=== PATIENT | male | born 1950 | race Caucasian/White ===

== ENCOUNTER 2019-10-12 06:28 | Day surgery (SDC) | payer MEDICARE, BC ==
[~2019-10-12 06:28] MED LIST: Lactated Ringers 1,000 ML IV SCH; Sodium Chloride 0.9% 10 ML SDV IV PRN; Sodium Chloride 0.9% 10 ML Syringe FLUSH PRN; Sodium Chloride 0.9% 2.5 ML Syringe FLUSH PRN; ceFAZolin 1 GM in Premix Bag 1 BAG IV ONE
[2019-10-12] MEDS ORDERED: Lidocaine 1% 20 ML MDV ONE (07:14)
[2019-10-12] MEDS ORDERED: Bupivacaine 0.5% 30 ML SDV ONE (07:14)
[2019-10-12] MEDS ORDERED: Omeprazole 20 MG Cap.CR PO PRN (09:24)
[2019-10-12] MEDS ORDERED: Gabapentin 100 MG Cap PO PRN (09:24)
[2019-10-12] MEDS ORDERED: Celecoxib 100 MG Cap PO PRN (09:24)
--- NOTE | 2019-10-12 11:16 | OR ---
SURGEON: Lauren Jaffe M.D. DATE OF PROCEDURE: 10/12/2019 PREOPERATIVE DIAGNOSIS: Phimosis, severe, with redundant foreskin. POSTOPERATIVE DIAGNOSIS: Phimosis, severe, with redundant foreskin. OPERATION: Circumcision, DESCRIPTION OF PROCEDURE: The patient was placed in the supine position. External genital area was prepped and draped in sterile drapes. 1% lidocaine was infiltrated circumferentially at the incision site. The excess foreskin was removed. Bleeding was stopped using primarily 3-0 chromic ties. Occasionally, the hot temp Bovie was used for smaller bleeders, primarily mostly for oozing. The skin edges were then reapproximated using 3-0 chromic interrupted sutures. With that done, the procedure was terminated. The patient was moved back to day surgery in good condition. He comes back as needed. CLEMENT / PAUL /[id number]
== END 2019-10-12 09:50 | disposition home or self-care (01) ==
LOC: MW.SDS 06:28
PROVIDERS: ATTEND Urology
DX: N47.1 Phimosis (principal)
CPT/HCPCS: 54161; J2001; J7120; J3490